=== PATIENT | male | born 1930 | race Caucasian/White ===

== ENCOUNTER 2018-04-16 10:18 | Inpatient (IN) | payer OTHER ==
[2018-04-16 10:27] VITALS: BMI 23.8
[2018-04-16] MEDS ORDERED: AMIODARONE HCL 150 MG/3 ML VIAL ONE (10:44)
[2018-04-16] MEDS ORDERED: MIDAZOLAM HCL 2 MG/2 ML SINGLE DOSE VIAL ONE (10:51)
--- NOTE | 2018-04-16 11:05 | PDOC ---
Attending Attestation - Resident Resident Name: [place] - HPI HPI: 04/16/18 10:59 87 y/o male brought into ED by niece after her uncle c/o not feeling well with abdominal pain since 11pm last night. ate a lot of nuts at 10:30pm then began c/ o abdominal pain, given gingerale with no relief. Pt did not sleep last night. Ths morning he was still not feeling well, niece took him to an urgent care that referred hin to the ED In the Ed he was noted to have hr of 188 and initial b/p 130/80. Pt denied chest pain sob, palpitations but was c/o abdominal pain and not feeling well - Physicial Exam PE: 04/16/18 11:06 87 /o male pale in appearance seen lying on strtecher in ED with wide complex tacycardia at 188 with initial stable b/p HEENT: NCAT ARRON, Neck: supple,+ jvd Lungs: + bs dylan cta Heart: S1S2 wide complex tachycardia at 188 Abd: + bs abd soft no guarding but c/o tenderness Ext: no edema Neuro: awake and alert cooperative with exam - Critical Care Time Total Critical Care Time: 30 Critical Care Statement: The care of this patient involved high complexity decision making to prevent further life threatening deterioration of the patient 's condition and/or to evaluate & treat vital organ system(s) failure or risk of failure. - Medical Decision Making 04/16/18 11:12 87 y/o male here in ED for evaluation of wide complex tachycardia(v tachycardia with a pulse) noted in triage, pt given amiodarone 150mg ivp with no response except b/p dropped, pt given versed 2mg ivp and cardioverted with 50 kathy and pt converted to Sr at 65 hr . Case discussed with Dr Arreguin cardiology covering for Dr. Lyon. Pt stable at present all labs pending, will give asa. Pt with NSTEMI troponin 9.0, case cardiology suggested plavix and heparin drip, and came in to ED to see Patient. Recommends transfer to [facility] for cardiac cath, pt was initially accepted to the ICU here at [place] but bed was availabe at [facility] and Pt was transferred to [facility]. Pt left Ed in stable condition. 04/16/18 18:34 04/16/18 18:43 04/16/18 18:44
[2018-04-16 11:12] LABS: BASO % 0.3 % (0-2.0); EOS % 0.1 % (0-4.5); HEMATOCRIT 39.9 % (35.4-49); HEMOGLOBIN 14.5 GM/dL (11.7-16.9); LYMPH % 10.6 % (8-40); MCH 33.3 pg (25.7-33.7); MCHC 36.5 g/dl (32.0-35.9); MEAN CELL VOLUME 91.2 fl (80-96); MONO % 10.5 % (3.8-10.2); NEUT % 78.5 % (42.8-82.8); PLATELET COUNT 252 K/MM3 (134-434); RBC 4.37 M/mm3 (4.00-5.60); RDW 13.6 % (11.9-15.9); WHITE BLOOD COUNT 10.3 K/mm3 (4.0-10.0)
[2018-04-16] MEDS ORDERED: SODIUM CHLORIDE 1,000 ML IV STA (11:12)
[2018-04-16] MEDS ORDERED: AMIODARONE HCL 150 MG/3 ML VIAL IVPUSH ONE (11:12)
[2018-04-16] MEDS ORDERED: ASPIRIN 81 MG CHEWABLE TABLETS PO ONE (11:12)
[2018-04-16] MEDS ORDERED: MIDAZOLAM HCL 2 MG/2 ML SINGLE DOSE VIAL IVPUSH ONE (11:12)
--- NOTE | 2018-04-16 11:12 | PDOC ---
History of Present Illness - General Chief Complaint: Pain Stated Complaint: SENT BY PCP ABD PAIN Time Seen by Provider: 04/16/18 10:35 - History of Present Illness Initial Comments: 04/16/18 11:45 The patient is an 87 year old male with a history of NC, CAD, Valve Replacement , who presents for evaluation of abdominal pain. The patient is accompanied by family who assisted in providing the history. They noted that the patient began having a sensation of abdominal fullness yesterday evening after eating. They noted him to be very "uncomfortable appearing" and the patient noted that he was unable to sleep through the night prompting their presentation to an Urgent Care. They noted that the patient had similar symptoms in the past with his prior NC. Urgent Care sent the patient to the ED for further evaluation after noting his HR to be elevated. The patient was noted to be tachycardic to 180 in triage. The patient reports some shortness of breath and fatigue and otherwise denies fevers, chills, cough, nausea, vomiting, or changes with urination or bowel movements. Past History - Past Medical History Allergies/Adverse Reactions: Allergies Allergy/AdvReac Type Severity Reaction Status Date / Time No Known Allergies Allergy Verified 04/16/18 10:27 Cardiac Disorders: Yes (mi 8 yrs ago) COPD: No HTN: Yes Hypercholesterolemia: Yes - Surgical History Cardiac Surgery: Yes (2009) - Suicide/Smoking/Psychosocial Hx Smoking History: Never smoked Review of Systems - Review of Systems Comments:: 04/16/18 11:49 Constitutional: Fatigue. No fevers, chills, malaise HEENT: No Rhinorrhea, nasal congestion, visual changes Cardiovascular: No chest pain, syncope, palpitations, lightheadedness Respiratory: SOB. No Cough, Hemoptysis, Gastrointestinal: Abdominal pain. No Nausea, Vomiting, Constipation, Diarrhea, Melena Genitourinary: No Dysuria, Frequency, Urgency, Hesitancy, Hematuria, Flank pain Musculoskeletal: No Myalgia, arthralgia Skin: No rashes, itching, bruising, Neurologic: No Headache, Dizziness, Numbness, Weakness, or Tingling Psychiatric: No Hallucinations. No SI or HI *Physical Exam - Vital Signs Last Vital Signs Temp Pulse Resp BP Pulse Ox 98.3 F 62 20 124/70 96 04/16/18 10:58 04/16/18 10:58 04/16/18 10:58 04/16/18 10:58 04/16/18 10:58 - Physical Exam Comments: 04/16/18 11:50 General Appearance: Nourished. In Apparent Distress HEENT: EOMI, ODALYS. No Pharyngeal Erythema, Tonsillar Exudate, Tonsillar Erythema Neck: No Cervical Lymphadenopathy Respiratory/Chest: Lungs Clear, Normal Breath Sounds. No Crackles, Rales, Rhonchi, Wheezing Cardiovascular: Regular Rhythm, Tachycardic Rate. No Murmur, Gallops, Rubs Gastrointestinal/Abdominal: Normal Bowel Sounds, Soft. No Guarding, Rebound, Tenderness Musculoskeletal: No CVA Tenderness Extremity: Normal Capillary Refill Integumentary: Normal Color, Dry, Warm Neurologic: Fully Oriented, Alert, Normal Mood/Affect, Normal Response, Moderate Sedation - Procedure Monitoring Vital Signs: Procedure Monitoring Vital Signs Temperature 98.3 F 04/16/18 10:58 Pulse Rate 62 04/16/18 10:58 Respiratory Rate 20 04/16/18 10:58 Blood Pressure 124/70 04/16/18 10:58 O2 Sat by Pulse Oximetry (%) 96 04/16/18 10:58 Heart Score/ECG Review #1 ECG reviewed & interpreted by me at: 10:30 Compared to previous ECG there are: Changes noted 04/16/18 11:52 Wide Complex Tachycardia HR 183 ED Treatment Course - LABORATORY CBC & Chemistry Diagram: 04/16/18 10:41 04/16/18 10:41 Medical Decision Making - Critical Care Time Total Critical Care Time (minutes): 60 Critical Care Statement: The care of this patient involved high complexity decision making to prevent further life threatening deterioration of the patient 's condition and/or to evaluate & treat vital organ system(s) failure or risk of failure. - Medical Decision Making 04/16/18 12:00 The patient is an 87 year old male with a history of NC, CAD, Valve Replacement , who presents for evaluation of abdominal pain. The patient appeared to be in a wide complex tachycardia on presentation to the ED. The patient was initially treated with amiodarone 150mg without improvement in his symptoms. The patient began to become hypotensive and was treated with versed prior to synchronized cardioversion. The patient converted to a normal sinus rhythm after cardioversion with stabilization in the patient's vital signs. It is unclear as to the reason why the patient was in a wide complex tachycardia. We will obtain a cbc, cmp, troponin, tsh, bnp, chest plain film, to evaluate further. The patient will require admission for further monitoring and management. We discussed the case with Dr. Arreguin who has been made aware of the case. 04/16/18 18:53 CBC is unremarkable. CMP demonstrates elevated liver enzymes. Troponin is elevated to 9.9. B[place] [id number]. We discussed the case with the hospitalist team who accepted the patient for admission. We discussed the case with Dr. Arreguin who recommended treatment with heparin drip and plavix. Dr. Arreguin is also recommending transfer to [facility] and has obtained an accepting physician Dr. Sears. The patient will be transferred to a floor bed at [facility] when one becomes available. Until then the patient will be admitted here. The patient has continued to remain stable with normal vital signs here in the ED. *DC/Admit/Observation/Transfer Diagnosis at time of Disposition: Tachycardia, Elevated troponin Arrhythmia Qualifiers: Arrhythmia type: unspecified cardiac arrhythmia Qualified Code(s): I49.9 - Cardiac arrhythmia, unspecified - Discharge Dispostion Condition at time of disposition: Stable Decision to Admit order: Yes - Referrals - Patient Instructions - Post Discharge Activity
[2018-04-16 11:43] LABS: ALBUMIN 3.8 g/dl (3.4-5.0); ALK PHOS 122 U/L (45-117); ANION GAP 13 MMOL/L (8-16); BILIRUBIN,TOTAL 1.9 mg/dL (0.2-1); BLOOD UREA NITROGEN 38 mg/dL (7-18); CALCIUM 8.8 mg/dL (8.5-10.1); CHLORIDE 99 mmol/L (98-107); CO2 21 mmol/L (21-32); CREATININE 1.9 mg/dL (0.55-1.3); GLUCOSE,RANDOM 216 mg/dL (74-106); MAGNESIUM 2.1 mg/dL (1.8-2.4); POTASSIUM 4.7 mmol/L (3.5-5.1); SGOT/AST 143 U/L (15-37); SGPT/ALT 77 U/L (13-61); SODIUM 133 mmol/L (136-145); TOT PROT 7.8 g/dl (6.4-8.2)
[2018-04-16 11:48] LABS: INR 1.28 (0.83-1.09); PROTHROMBIN TIME (PATIENT) 15.2 SEC (9.7-13.0)
--- NOTE | 2018-04-16 12:24 | EKG ---
Test Reason : Blood Pressure : / mmHG Vent. Rate : 182 BPM Atrial Rate : 096 BPM P-R Int : 000 ms QRS Dur : 208 ms QT Int : 330 ms P-R-T Axes : 000 -53 127 degrees QTc Int : 574 ms WIDE QRS TACHYCARDIA WITH OCCASIONAL PREMATURE VENTRICULAR COMPLEXES LEFT AXIS DEVIATION LEFT VENTRICULAR HYPERTROPHY WITH QRS WIDENING AND REPOLARIZATION ABNORMALITY INFERIOR INFARCT , AGE UNDETERMINED ABNORMAL ECG WHEN COMPARED WITH ECG OF 22-JUN-2009 12:31, WIDE QRS TACHYCARDIA HAS REPLACED SINUS RHYTHM VENT. RATE HAS INCREASED BY 63 BPM Confirmed by AICHA HU MD ([id number]) on 04/16/2018 12:24:01 PM Referred By: Confirmed By:AICHA HU MD
[2018-04-16] MEDS ORDERED: HEPARIN NA (PORCINE) 5,000 UNITS/ML 1ML VIAL IVPUSH PRN ×2 (12:30)
[2018-04-16] MEDS ORDERED: HEPARIN - 25,000 UNIT in SODIUM CHLORIDE 495 ML IV SCH (12:30)
[2018-04-16] MEDS ORDERED: CLOPIDOGREL BISULFATE 300 MG TABLET PO ONE (12:30)
[2018-04-16] MEDS ORDERED: CLOPIDOGREL BISULFATE 300 MG TABLET ONE (13:17)
[2018-04-16] MEDS ORDERED: HEPARIN INFUSION - 25,000 UNITS/500 ML INFUS.BAG IVPB ONE (13:17)
[2018-04-16] MEDS ORDERED: ASPIRIN 325 MG TABLET ONE (13:19)
[2018-04-16] MEDS ORDERED: HEPARIN NA (PORCINE) 5,000 UNITS/ML 1ML VIAL ONE (13:19)
[2018-04-16 14:14] VITALS: TEMP 98.2
--- NOTE | 2018-04-16 14:43 | CON.CARD ---
Cardiology Consult (text) - Consultation Consultation Note: cc: abd pain hpi: 87 m hx cad s/p mi and pci 2009 with bioprost valve then as well, here with epigastric pain. Last night had dinner and later felt sweaty and had epigastric heaviness. Thought it was indigestion so ignored it but it persisted all night and couldnt sleep so came to ER. No sob palps dizzy loc pnd orthopnea le edema. In ER found to be in VT. Given amio but bp was low so then had dccv. Then was in nsr and BP improved. Currently epigastric pain resolved. Sees dr singh for cardio. pmh: per hpi psh: per hpi social: no tob fam: nc ros: per hpi; no nvd fever cough kemp vision changes gib hematuria dysuria meds:home meds n/a pe: Vital Signs Period Temp Pulse Resp BP Sys/[place] Pulse Ox Last 24 Hr 96 F-98.3 F 62-182 20-20 79-124/58-80 96-98 nad no jvd rrr s1s2 no mrg cta bl nl eff aaox3 no le e/c/c abd nt nd pos bs no jaundice diaphoresis pos dp pt no carotid bruits Laboratory Last Values WBC 10.3 K/mm3 (4.0-10.0) H 04/16/18 10:41 RBC 4.37 M/mm3 (4.00-5.60) 04/16/18 10:41 Hgb 14.5 GM/dL (11.7-16.9) 04/16/18 10:41 Hct 39.9 % (35.4-49) 04/16/18 10:41 MCV 91.2 fl (80-96) 04/16/18 10:41 MCH 33.3 pg (25.7-33.7) 04/16/18 10:41 MCHC 36.5 g/dl (32.0-35.9) H 04/16/18 10:41 RDW 13.6 % (11.9-15.9) 04/16/18 10:41 Plt Count 252 K/MM3 (134-434) 04/16/18 10:41 MPV 11.0 fl (7.5-11.1) 04/16/18 10:41 Absolute Neuts (auto) 8.1 K/mm3 (1.5-8.0) H 04/16/18 10:41 Neutrophils % 78.5 % (42.8-82.8) 04/16/18 10:41 Lymphocytes % 10.6 % (8-40) 04/16/18 10:41 Monocytes % 10.5 % (3.8-10.2) H 04/16/18 10:41 Eosinophils % 0.1 % (0-4.5) 04/16/18 10:41 Basophils % 0.3 % (0-2.0) 04/16/18 10:41 Nucleated RBC % 0 % (0-0) 04/16/18 10:41 PT with INR 15.20 SEC (9.7-13.0) H 04/16/18 10:41 INR 1.28 (0.83-1.09) H 04/16/18 10:41 PTT (Actin FS) 30.3 SECONDS (25.2-36.5) 04/16/18 10:41 Sodium 133 mmol/L (136-145) L 04/16/18 10:41 Potassium 4.7 mmol/L (3.5-5.1) 04/16/18 10:41 Chloride 99 mmol/L (98-107) 04/16/18 10:41 Carbon Dioxide 21 mmol/L (21-32) 04/16/18 10:41 Anion Gap 13 MMOL/L (8-16) 04/16/18 10:41 BUN 38 mg/dL (7-18) H 04/16/18 10:41 Creatinine 1.9 mg/dL (0.55-1.3) H 04/16/18 10:41 Creat Clearance w eGFR 33.62 (>60) 04/16/18 10:41 Random Glucose 216 mg/dL (74-106) H 04/16/18 10:41 Calcium 8.8 mg/dL (8.5-10.1) 04/16/18 10:41 Magnesium 2.1 mg/dL (1.8-2.4) 04/16/18 10:41 Total Bilirubin 1.9 mg/dL (0.2-1) H 04/16/18 10:41 AST 143 U/L (15-37) H 04/16/18 10:41 ALT 77 U/L (13-61) H 04/16/18 10:41 Alkaline Phosphatase 122 U/L (45-117) H 04/16/18 10:41 Creatine Kinase 454 IU/L (26-308) H 04/16/18 10:41 Creatine Kinase Index 9.3 % (0.0-5.0) H* 04/16/18 10:41 CK-MB (CK-2) 42.3 ng/mL (0.5-3.6) H 04/16/18 10:41 Troponin I 9.97 ng/ml (0.00-0.05) H* 04/16/18 10:41 B-Natriuretic Peptide 71412.0 pg/ml (5-450) H 04/16/18 10:41 Total Protein 7.8 g/dl (6.4-8.2) 04/16/18 10:41 Albumin 3.8 g/dl (3.4-5.0) 04/16/18 10:41 TSH 2.32 uIU/ml (0.358-3.74) 04/16/18 10:41 cxr: mild congestion ecg 1: VT 180s ecg 2 after dccv: sr, nl intervals, inf q's with st elev (old from 2009 as well ) est cct 35 mins a/p: 87 m hx cad s/p mi and pci 2009 with bioprost valve then as well, here with epigastric pain. vtach, nstemi: -pt presented in VT with hypotension. Amio given initially but remained in vt and bp low so had cardioversion and converted to sr. -ecg when in sr shows no sig change from 2010 ecg. -trop elevated to 9s and ck mb elevated as well. -seems pt had nstemi complicated by VT as well. Treat with dapt, hep gtt, tele monitoring. Start bb. Not on statin now due to elevated lfts. -case d/w interventionalist and pt accepted for transfer to [facility] for cardiac monitoring/cath. -check echo cad s/p remote mi/pci: -plan as above bioprosthetic valve: -no signs of valve failure on exam, check echo clovis: -no hx ckd, likely clovis 2/2 mi/hypotension -monitor cr now that bp improved elevated lfts: -possibly due to mi/hypotension, monitor trend
[2018-04-16 15:17] VITALS: BP 122/77; PULSE 60
--- NOTE | 2018-04-16 17:18 | HP ---
Admitting History and Physical - Admission Chief Complaint: epigastric pain History of Present Illness: very pleasant 87 y/o man with h/o CAD s/p DE 2010 s/p cath and stenting, s/p bioprosthetic mitral valve replacement, HTn , and HLP who presented with epigastric pain lastnight after 10:30 pm he started having epigastric pain , with no radiation . he could not sleep or find comfortable position. he denied any SOB last night but this am he felt SOB. he denies fever or chills, or light headedness or LARA. at presentationto ER, he was found to be in VTAch which did not respond to amion and had to be cardioverted when he became hypotensive . Now , he is still in ER, he has no CP, no fever , no SOB, no cogh. he feels fine. he laways looked pale but now per family , he might be a little yellow he saw dr. Lyon 3 days ago and was feeling normal. last stress test was 1 yr ago and was told "it was Ok" he takes aspirin but he does not remember his other meds . and [facility] ( [phone]) is closed now . History Source: Patient, Family Member Limitations to Obtaining History: No Limitations - Past Medical History Cardiovascular: Yes: CAD, HTN, Hyperlipdemia, DE, Other (MVR) - Smoking History Smoking history: Never smoked - Alcohol/Substance Use Hx Alcohol Use: No History of Substance Use: reports: None - Social History ADL: Independent Home Medications - Allergies Allergies/Adverse Reactions: Allergies Allergy/AdvReac Type Severity Reaction Status Date / Time No Known Allergies Allergy Verified 04/16/18 10:27 - Home Medications Home Medications (free text): unable to verify.pharmacy closed Family Disease History - Family Disease History Family History: Unremarkable Review of Systems - Review of Systems Constitutional: denies: Chills, Diaphoresis, Fever, Lethargy, Loss of Appetite, Night Sweats Eyes: denies: Blind Spots, Blurred Vision, Double Vision HENT: denies: Difficult Swallowing, Ear Discharge, Ear Pain, Throat Pain Neck: denies: Decreased ROM, Lumps, Pain on Movement Cardiovascular: reports: Shortness of Breath (this am . resolved now). denies: Chest Pain, Edema, Palpitations Respiratory: denies: Cough, Exercise Intolerance, Orthopnea, SOB on Exertion Gastrointestinal: reports: Abdominal Pain (resolved now). denies: Bloating Genitourinary: denies: Burning, Discharge, Dysuria Musculoskeletal: denies: Back Pain, Crepitus, Decreased ROM, Joint Swelling Neurological: denies: Change in LOC, Change in Speech, Confusion, Dizziness, Numbness, Syncope Psychiatric: denies: Altered Sleep Pattern, Anxiety, Depression Physical Examination Vital Signs: Vital Signs Temperature 98.2 F 04/16/18 15:16 Pulse Rate 60 04/16/18 15:16 Respiratory Rate 20 04/16/18 15:16 Blood Pressure 122/77 04/16/18 15:16 O2 Sat by Pulse Oximetry (%) 96 04/16/18 10:58 Constitutional: Yes: Well Nourished, No Distress, Calm, Thin Eyes: Yes: Conjunctiva Clear, EOM Intact, PERRL, Sclera Icterus. No: Ptosis HENT: Yes: Atraumatic, Normocephalic. No: Pharyngeal Erythema, Rhinnorhea, Thrush Neck: Yes: Supple, Trachea Midline Cardiovascular: Yes: Regular Rate and Rhythm, JVD, Murmur (3/6 Sm at LLSB), S1, S2. No: Tachycardia Respiratory: Yes: Regular, CTA Bilaterally. No: Accessory Muscle Use, Dullness , Poor Air Entry Gastrointestinal: Yes: Normal Bowel Sounds, Soft. No: Distention, Tenderness, Epigastrium, Tenderness, Rebound, Vomiting ...Rectal Exam: Yes: Deferred Musculoskeletal: No: Joint Stiffness, Joint Swelling Extremities: No: Cold, Cool Edema: No Neurological: Yes: Alert, Oriented ...Motor Strength: LUE (5/5 proximally and distally), LLE (5/5 proximally and distally), RUE (5/5 proximally and distally), RLE (5/5 proximally and distally) Labs: CBC, BMP 04/16/18 10:41 04/16/18 10:41 Imaging - Results Chest X-ray: Report Reviewed EKG: Report Reviewed, Image Reviewed (1st EKG with VTAch 2nd EKG with sinus rhythm, Q waves and TWI in inferior leads) Assessment/Plan very pleasant 87 y/o man with h/o CAD s/p DE 2010 s/p cath and stenting, s/p bioprosthetic mitral valve replacement, HTn , and HLP who presented with epigastric pain. he was found to have NSTEMi and VTACH s/p cardioversion . 1- NSTEMI: inferior infarct likely. hemodynamically stable now. - cont heparin gtt - repeat trop and trend - cont Asa and plavix - card input appreciated. tx to [facility] for cath - tele - monitor for signs of hypotension and heart failure - holding statin with transaminitis - BB 2- Vtach : in setting of DE. s/p cardioversion and one dose of amio - now in sinsur - check phos - monitor electrolytes. - tele 3- Transaminitis : likely in settingof hypotension . no RUQ tenderness. - trend. 4- VIDAL : also could be due to hypoperfusion with hypotension . avoid fluids now as he might has some signs of heart failure ( JVD, needs O2 ) - monitor - received IVF during resuscitation 5- meds were not confirmed as pt does not remember and pharmacy is closed. Dispo : accepted for Tx Visit type - Emergency Visit Emergency Visit: Yes ED Registration Date: 04/16/18 Care time: The patient presented to the Emergency Department on the above date and was hospitalized for further evaluation of their emergent condition. - New Patient This patient is new to me today: Yes Date on this admission: 04/16/18 - Critical Care Critical Care patient: No
--- NOTE | 2018-04-16 17:33 | DS ---
Physical Examination Vital Signs: Vital Signs Temperature 98.2 F 04/16/18 15:16 Pulse Rate 60 04/16/18 15:16 Respiratory Rate 20 04/16/18 15:16 Blood Pressure 122/77 04/16/18 15:16 O2 Sat by Pulse Oximetry (%) 96 04/16/18 10:58 Findings/Remarks: please see H&P exam on same day Labs: CBC, BMP 04/16/18 10:41 04/16/18 10:41 Discharge Summary Reason For Visit: TACHYARDIA, POSITIVE TROP,ARRHYTHMIA Current Active Problems Arrhythmia (Acute) Elevated troponin (Acute) Tachycardia (Acute) Hospital Course: very pleasant 87 y/o man with h/o CAD s/p IN 2010 s/p cath and stenting, s/p bioprosthetic mitral valve replacement, HTn , and HLP who presented with epigastric pain. he was found to have NSTEMi and VTACH s/p cardioversion . the patient was thought ot have NSTEMI, liley inferior infarct .Trop 9 . he was started on heparin gtt, asa and plaix and was also placed on BB in preparation for transfer for cath at [facility]. he was not given statin due to transaminitis His Vtach resolved and did not recur as of now. he was given one dose of amio and then cardioverted in ER. Now in sinus rhythm. electrolytes to be monitored He was also found to have transaminitis and VIDAL which were thought to be due to transient hypotension . if abnormalities worsen, then he might need Us of liver and kidneys Dispo : transfer to [facility] for cath. Of note : Meds need to be confirmed time spent 40 min Condition: Stable - Instructions Referrals: Akbar Terrazas MD [Primary Care Provider] - This patient is new to me today: Yes Date on this admission: 04/16/18 Emergency Visit: Yes ED Registration Date: 04/16/18 Care time: The patient presented to the Emergency Department on the above date and was hospitalized for further evaluation of their emergent condition. Critical Care patient: No - Discharge Referral Referred to [facility] No
[2018-04-16 18:55] LABS: PHOSPHOROUS 3.4 mg/dL (2.5-4.9)
[2018-04-16] MEDS ORDERED: METOPROLOL TARTRATE 25 MG TABLET (FP) PO SCH (22:00)
[2018-04-17] MEDS ORDERED: ASPIRIN 81 MG CHEWABLE TABLETS PO SCH (10:00)
[2018-04-17] MEDS ORDERED: CLOPIDOGREL BISULFATE 75 MG TABLET (FP) PO SCH (10:00)
--- NOTE | 2018-04-18 16:29 | EKG ---
Test Reason : Blood Pressure : / mmHG Vent. Rate : 065 BPM Atrial Rate : 065 BPM P-R Int : 168 ms QRS Dur : 114 ms QT Int : 366 ms P-R-T Axes : 092 025 -37 degrees QTc Int : 380 ms NORMAL SINUS RHYTHM WITH SINUS ARRHYTHMIA LEFT VENTRICULAR HYPERTROPHY WITH REPOLARIZATION ABNORMALITY INFERIOR INFARCT , AGE UNDETERMINED ABNORMAL ECG WHEN COMPARED WITH ECG OF 16-APR-2018 10:38, SINUS RHYTHM HAS REPLACED WIDE QRS TACHYCARDIA VENT. RATE HAS DECREASED BY 117 BPM CLINICAL CORRELATION IS RECOMMENDED Confirmed by AUDRA NEWTON MD ([id number]) on 04/18/2018 4:29:00 PM Referred By: Confirmed By:AUDRA NEWTON MD
== END 2018-04-16 14:13 | disposition short-term general hospital (02) | DRG 281 ==
LOC: JER 10:18 → JERBED 12:47
PROVIDERS: ADMIT Internal Medicine; ATTEND Internal Medicine
PROC: 5A2204Z Restoration of Cardiac Rhythm, Single (ICD-10-PCS; principal; 2018-04-16)
DX: I21.4 Non-ST elevation (NSTEMI) myocardial infarction (principal); N17.9 Acute kidney failure, unspecified; I47.2 Ventricular tachycardia; I10 Essential (primary) hypertension; I25.10 Atherosclerotic heart disease of native coronary artery without angina pectoris; Z98.61 Coronary angioplasty status; I95.9 Hypotension, unspecified; R74.0 Nonspecific elevation of levels of transaminase and lactic acid dehydrogenase [LDH]
CPT/HCPCS: 36415; 71045-TC-FY; 80053; 82550; 82553; 83735; 83880; 84100; 84443; 84484; 85025; 85610; 85730; 93005; 93010; 99285-25; J1644; J7030